=== PATIENT | female | born 1985 | race African-American/Black ===

== ENCOUNTER 2019-01-04 15:54 | Emergency (ER) | payer OTHER ==
[2019-01-04 15:58] VITALS: BP 111/75; PULSE 75; TEMP 98.3; BMI 30.5
--- NOTE | 2019-01-04 16:09 | PDOC ---
History of Present Illness - General Chief Complaint: Urinary Problem Stated Complaint: UTI Time Seen by Provider: 01/04/19 16:02 History Source: Patient Exam Limitations: Clinical Condition - History of Present Illness Initial Comments: 01/04/19 16:19 Patient with history of multiple comorbidities present with complaint of one- week history of urinary frequency, burning with urination, urgency and suprapubic discomfort. Denies nausea, vomiting, fever or chills. Denies back pains. Denies vaginal discharge. Patient did not take anything for symptoms. Denies any other symptoms Timing/Duration: 1 week Past History - Past Medical History Allergies/Adverse Reactions: Allergies Allergy/AdvReac Type Severity Reaction Status Date / Time Penicillins Allergy Intermediate Rash Verified 01/04/19 16:07 prochlorperazine maleate Allergy Verified 01/04/19 16:07 [From Compazine] prochlorperazine edisylate AdvReac Intermediate Verified 01/04/19 16:07 [From Compazine] Home Medications: Ambulatory Orders Metoprolol Tartrate [Lopressor -] 200 mg PO BID #0 tablet 07/04/12 Ergocalciferol (Vitamin D2) [Vitamin D] 50,000 unit PO MONTHLY 02/03/14 predniSONE [Deltasone -] 5 mg PO DAILY 02/03/14 Aspirin [ASA -] 81 mg PO DAILY 04/13/16 Calcitriol [Rocaltrol -] 0.25 mcg PO DAILY 04/13/16 Insulin Glargine,Hum.rec.anlog [Lantus Solostar PEN (NF)] 0 units SQ HS Insulin Lispro [Humalog] 100 unit SQ ASDIR 04/13/16 Mycophenolate Sodium [Myfortic] 360 mg PO TID 04/13/16 Tacrolimus [Prograf] 3 mg PO BID 04/13/16 Ciprofloxacin [Cipro (Restricted To Id)] 500 mg PO Q12H 7 Days #14 tablet Phenazopyridine HCl [Pyridium] 100 mg PO TID 2 Days #6 tablet 01/04/19 COPD: No Diabetes: Yes Dialysis: Yes (MON/WED/FRI) Disorders: Yes (kidney transplant x3) HTN: Yes - Reproductive History (#): 0 - Immunization History Immunization Up to Date: Yes - Suicide/Smoking/Psychosocial Hx Smoking Status: Yes Smoking History: Never smoked Years of Tobacco Use: 10 Have you smoked in the past 12 months: Yes Number of Cigarettes Smoked Daily: 20 Cigars Per Day: 0 'Breaking Loose' booklet given: 06/23/12 Hx Alcohol Use: No Drug/Substance Use Hx: No Substance Use Type: Marijuana Hx Substance Use Treatment: No Review of Systems - Review of Systems Able to Perform ROS?: Yes Is the patient limited Mongolian proficient: No Constitutional: No: Chills, Fever, Malaise HEENTM: No: Symptoms Reported Respiratory: No: Symptoms reported Cardiac (ROS): No: Symptoms Reported ABD/GI: Yes: See HPI. No: Symptoms Reported, Nausea, Vomiting, Abdominal cramping : Yes: Symptoms Reported, See HPI, Burning, Dysuria, Frequency, Urgency. No: Discharge, Flank Pain, Hematuria Musculoskeletal: No: Symptoms Reported, Back Pain All Other Systems: Reviewed and Negative *Physical Exam - Vital Signs Last Vital Signs Temp Pulse Resp BP Pulse Ox 98.3 F 75 18 111/75 100 01/04/19 15:55 01/04/19 15:55 01/04/19 15:55 01/04/19 15:55 01/04/19 15:55 - Physical Exam General Appearance: Yes: Nourished, Appropriately Dressed. No: Apparent Distress HEENT: positive: Normal ENT Inspection Neck: positive: Supple Respiratory/Chest: positive: Lungs Clear, Normal Breath Sounds. negative: Respiratory Distress, Accessory Muscle Use Cardiovascular: positive: Regular Rhythm, Regular Rate Gastrointestinal/Abdominal: positive: Normal Bowel Sounds, Flat, Soft. negative : Tender, Organomegaly Musculoskeletal: positive: Normal Inspection. negative: CVA Tenderness Extremity: positive: Normal Inspection Integumentary: positive: Normal Color Neurologic: positive: Fully Oriented, Alert, Normal Mood/Affect, Normal Response Medical Decision Making - Medical Decision Making 01/04/19 16:20 Patient with history of multiple comorbidities present with complaint of one- week history of urinary frequency, burning with urination, urgency and suprapubic discomfort. Denies nausea, vomiting, fever or chills. Denies back pains. Denies vaginal discharge. Patient did not take anything for symptoms. Denies any other symptoms Symptoms likely UTI. UA, urine culture and urine hCG lab ordered 01/04/19 17:42 UA shows leukocytosis. hcg neg. Patient stable on cipro ABx and pyridium pending Ucx results *DC/Admit/Observation/Transfer Diagnosis at time of Disposition: Dysuria - Discharge Dispostion Disposition: HOME Condition at time of disposition: Stable Decision to Admit order: No - Prescriptions Prescriptions: Ciprofloxacin [Cipro (Restricted To Id)] 500 mg PO Q12H 7 Days #14 tablet Phenazopyridine HCl [Pyridium] 100 mg PO TID 2 Days #6 tablet - Referrals Referrals: Con Quan MD [Staff Physician] - - Patient Instructions Printed Discharge Instructions: DI for Urinary Tract Infection (UTI) Additional Instructions: Take medications as prescribed. Increase fluid intake. Voids frequently. Follow- up with [facility] as needed - Post Discharge Activity
[2019-01-04 17:14] LABS: URINE APPEARANCE CLOUDY; URINE BILIRUBIN NEGATIVE (NEGATIVE); URINE COLOR YELLOW; URINE GLUCOSE (UA) NEGATIVE (NEGATIVE); URINE KETONE NEGATIVE (NEGATIVE)
[2019-01-04 17:15] LABS: URINE NITRITE NEGATIVE (NEGATIVE); URINE PROTEIN TRACE (NEGATIVE); URINE UROBILINOGEN 0.2 mg/dL (0.2-1.0)
[2019-01-04 17:20] LABS: URINE LEUK ESTERASE 3+ (NEGATIVE)
[2019-01-04 20:50] LABS: EPI CELLS 0.6 /HPF (0-5/HPF); HYALINE CASTS 4 /lpf (0-8); URINE RBC 1 /hpf (0-4)
[2019-01-04 20:57] LABS: URINE WBC 492.9 /hpf (0-5)
== END 2019-01-04 17:20 | disposition home or self-care (01) ==
LOC: JERFT 15:54
DX: N39.0 Urinary tract infection, site not specified (principal); I12.0 Hypertensive chronic kidney disease with stage 5 chronic kidney disease or end stage renal disease; E11.22 Type 2 diabetes mellitus with diabetic chronic kidney disease; N18.6 End stage renal disease; N17.8 Other acute kidney failure; Z99.2 Dependence on renal dialysis; Z79.4 Long term (current) use of insulin; Z94.0 Kidney transplant status
CPT/HCPCS: 81003; 84703; 87086; 87186; 99281-25